=== PATIENT | female | born 1985 | race Caucasian/White ===

== ENCOUNTER 2019-10-04 23:04 | Inpatient (IN) | payer OTHER ==
[2019-10-04 23:35] VITALS: BMI 29.7
[2019-10-04] MEDS ORDERED: hydrALAZINE 20 MG/ML VIAL SLOW IVP PRN (23:56)
[2019-10-04] MEDS ORDERED: Morphine 10 MG/ML VIAL IM PRN (23:56)
[2019-10-04] MEDS ORDERED: Promethazine HCl 25 MG/ML VIAL IM PRN (23:57)
--- NOTE | 2019-10-05 00:59 | PRG ---
DATE OF SERVICE: 10/04/2019 PRIMARY OB: Ms. 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 CHIEF COMPLAINT: Abdominal pains. HISTORY OF PRESENT ILLNESS: The patient is a 34-year-old G2, P1 female with an intrauterine at 36 weeks and 5 days, presenting to Labor and Delivery with uterine contractions that have intensified since this evening. She reports that she started having bloody show and that her contractions have become more frequent. The patient also reports that about 2 weeks ago, she was checked by her primary provider and was about 1 cm without effacement. The patient denies vaginal bleeding or leakage of fluid. She denies urinary urgency or frequency. The patient denies fever, cough, headache, chest pain, shortness of breath, nausea, vomiting. She has had some loosening of her stools. Denies diarrhea. Denies any new rashes, hip problems, knee problems, muscle weakness. The patient has a history of delivery at 36 weeks with her first . PAST MEDICAL HISTORY: Negative. PAST SURGICAL HISTORY: Negative. ALLERGIES: NO KNOWN DRUG ALLERGIES. MEDICATIONS: vitamins. SOCIAL HISTORY: Denies tobacco or drug use. The patient does report some alcohol use when she was not . OB LABS: Unavailable at time of dictation. REVIEW OF SYSTEMS: Per HPI. PHYSICAL EXAMINATION: VITAL SIGNS: Blood pressure 135/89, heart rate of 104, saturating 98% on room air, respiratory rate 18. GENERAL: She appears to be in no acute distress. She is alert and oriented, cooperative, and pleasant to interact with. HEAD: Normocephalic, atraumatic. LUNGS: Clear to auscultation bilaterally. HEART: Regular rate and rhythm. ABDOMEN: Gravid, soft, nontender. EXTREMITIES: Nontender and nonedematous. DTRs 1+. No clonus. CERVICAL: Per nursing staff, she is 3, 90, 0 station, and in vertex presentation. heart tracing shows the fetus with a baseline in the 140s with moderate long-term variability, positive 15 x 15 accelerations, no decelerations. Tocometer shows contractions about every 2 to 3 minutes, fairly regular. ASSESSMENT AND PLAN: The patient is a 34-year-old G2, P1 female with an intrauterine at 36 weeks and 5 days, presenting with uterine contractions. The patient has no clear indication at this time of active labor; however, she is having regular painful contractions, a cervical exam that has distinctly changed from about 2 weeks ago and is having bloody show. The patient will be monitored here for the next 2 to 3 hours and then re-evaluated. Pain medicines have been made available to her should she need it. Fetus has a category 1 tracing and reactive NST. Pt on reexamination has evidence of active with sve 6cm and has been admitted to the hospital for expectant management. Marii Burgos CNM is managing care. Job ID: [id number] MTDD
[2019-10-05] MEDS ORDERED: hydrALAZINE 20 MG/ML VIAL SLOW IVP PRN ×2 (02:42→07:46)
[2019-10-05] MEDS ORDERED: Ondansetron PF 4 MG/2 ML Vial IVP PRN ×2 (02:42→07:46)
[2019-10-05] MEDS ORDERED: Ibuprofen 800 MG TAB PO PRN (02:42)
[2019-10-05] MEDS ORDERED: NS / Oxytocin 40 units/1000ml 1,000 ML IV PRN (02:42)
[2019-10-05] MEDS ORDERED: HYDROcodone/Acetaminophen 5/325 mg Tablet PO PRN ×3 (02:42→07:46)
[2019-10-05] MEDS ORDERED: Promethazine HCl 25 MG/ML VIAL IM PRN (02:42)
[2019-10-05] MEDS ORDERED: Lidocaine 1% (PF) 30 ML VIAL SC PRN (02:42)
[2019-10-05 03:25] LABS: Hemoglobin 14.6 g/dL (12.0-16.0); Mean Corpuscular HGB CONC 34.5 g/dL (32.0-36.0); Mean Corpuscular Hemoglobin 33.5 pg (27.0-31.0); Mean Corpuscular Volume 97.2 fL (78.0-98.0); Mean Platelet Volume 9.5 fL (7.4-10.4); Platelet Count 209 thou/uL (130-400); RBC Distribution Width 11.9 % (11.5-14.5); Red Blood Cell (RBC) Count 4.36 mill/uL (4.20-5.40); White Blood Cell (WBC) Count 13.1 thou/uL (4.8-10.8)
[2019-10-05 04:07] LABS: HBSAg Index 0.12 S/CO (0-0.99); Hep B Surf Ag Non-Reactive S/CO (NonReactive)
[2019-10-05 04:23] LABS: Syphilis Antibody Nonreactive (Nonreactive); Syphilis Antibody Index 0.05 S/CO (<1.00 Non-Reactive)
--- NOTE | 2019-10-05 05:05 | PDOC.OPDEL ---
OB Operative/Delivery Note Delivery Dr/Surgeon: light Pre-Delivery Diagnosis: active labor Procedure/Post Delivery Dx: spontaneous vaginal delivery Weeks gestation: 36 Anesthesia: none - Findings A Sex: female Weight: 6 lb 13 oz - 1 min: 8 - 5 min: 9 - Additional Findings/Plan Placenta delivered: spontaneous Repaired Obstetrical Laceration: 1st degree (repaired wtih dermabond) Post delivery plan: routine recovery
--- NOTE | 2019-10-05 05:05 | PDOC.LDHP ---
Labor and Delivery H&P Chief complaint: contractions Current gestational age (weeks): 36 (and 6 days) Due date: 10/27/19 Dating criteria: last menstrual period Grav: 2 Para: 1 OB History Details: 2016 at 36 weeks Current complications: gestational diabetes (Diet controlled) Abnormal US findings: No Current medications: pre-jules vitamins Previous surgical history: other (wisdom teeth) Allergies/Adverse Reactions: Allergies Allergy/AdvReac Type Severity Reaction Status Date / Time No Known Allergies Allergy Verified 10/04/19 23:26 Social history: none - Physical Exam Vital signs reviewed and normal: yes General: breathing through contractions Lungs: nonlabored breathing Abdomen: gravid FHT: category 1 - Vaginal Exam cm dilated: 6 Effacement: 100% Station: 0 - OB Labs Blood type: A RH: positive Antibody Screen: negative HIV: negative RPR: negative HEPSAg: negative 1 hour GCT: positive 3 hour GTT: + for GDM GBS: negative Urine drug screen: negative Rubella: immune - Assessment L&D Assessment: labor (at 36.6 Andticipate )
[2019-10-05] MEDS ORDERED: Milk Of Magnesia 30 ML UDCUP PO PRN (07:46)
[2019-10-05] MEDS ORDERED: NS / Oxytocin 40 units/1000ml 1,000 ML IV SCH (07:46)
[2019-10-05] MEDS ORDERED: Misoprostol 200 MCG TAB VAG PRN (07:46)
[2019-10-05] MEDS ORDERED: Benzocaine-Menthol 82.5 ML CAN TOP PRN (07:46)
[2019-10-05] MEDS ORDERED: Bisacodyl 10 MG SUPP PR PRN (07:46)
[2019-10-05] MEDS ORDERED: Lanolin Ointment 7 GM TUBE TOP PRN (07:46)
[2019-10-05] MEDS: Ferrous Sulfate 325 MG TAB PO SCH ×2 (11:14→16:07)
[2019-10-05] MEDS: Prenatal Vitamin 1 TAB PO SCH (11:14)
[2019-10-05] MEDS: Docusate Calcium (SURFAK) 240 MG CAP PO SCH ×2 (11:14→21:51)
[2019-10-05] MEDS: Ibuprofen 800 MG TAB PO SCH ×2 (14:06→21:51)
[2019-10-06] MEDS: Ibuprofen 800 MG TAB PO SCH ×2 (05:58→14:20)
[2019-10-06 07:40] VITALS: BP 108/64; TEMP 97.9
[2019-10-06] MEDS ORDERED: Adacel (T-DAP) 0.5 ML SYRINGE IM ONE (07:46)
[2019-10-06] MEDS: Docusate Calcium (SURFAK) 240 MG CAP PO SCH (08:56)
[2019-10-06] MEDS: Prenatal Vitamin 1 TAB PO SCH (08:56)
[2019-10-06] MEDS: Ferrous Sulfate 325 MG TAB PO SCH (08:56)
== END 2019-10-06 14:50 | disposition home or self-care (01) | DRG 807 ==
LOC: L&D/OP 23:04 → L&D-LIB 10-05 02:42 → 3SW 10-05 08:34
PROVIDERS: ADMIT Obstetrics & Gynecology; ATTEND Obstetrics & Gynecology
PROC: 10E0XZZ Delivery of Products of Conception, External Approach (ICD-10-PCS; principal; 2019-10-05)
PROC: 0HQ9XZZ Repair Perineum Skin, External Approach (ICD-10-PCS; 2019-10-05)
DX: O60.14X0 Preterm labor third trimester with preterm delivery third trimester, not applicable or unspecified (principal); Z37.0 Single live birth; O24.420 Gestational diabetes mellitus in childbirth, diet controlled; O70.0 First degree perineal laceration during delivery; Z3A.36 36 weeks gestation of pregnancy
CPT/HCPCS: 36415; 85027; 86780; 86850; 86900; 86901; 87340; 99285; J2001; J2405